=== PATIENT | male | born 1935 | race Caucasian/White ===

== ENCOUNTER 2017-01-30 21:45 | Emergency (ER) | payer MEDICARE ==
[~2017-01-30] VITALS: Ht 172.7 cm; Wt 59.0 kg
[~2017-01-30 21:45] MED LIST: AMLODIPINE/BENA1 CAP PO; BISOPROLOL PO; DIGOX0.125 MG PO; DILTIAZEM30 MG PO; FLOMAX0.4 MG PO; JANTOVEN1 MG PO; KLOR-CON M2020 ME1 PO; NEXIUM20 MG PO; PLAVIX75 MG PO; PRILOSEC40 M1 PO; PROSCAR5 MG PO; THERMOTABS 2871 TAB PO; ULTRAM50 MG PO; VITAMIN D-32000 UNI1 PO; [UNRECOGNIZED DRUG - OTHER] PO
[2017-01-30] MEDS ORDERED: ASPIR LOW81 MG PO (21:52)
[2017-01-30] MEDS ORDERED: ATORVASTATIN CA40 M1 PO (21:52)
[2017-01-30] MEDS ORDERED: PRADAXA75 M1 PO (21:53)
[2017-01-30] MEDS ORDERED: AMLODIPINE BESYL5 MG PO (21:53)
[2017-01-30] MEDS ORDERED: [UNRECOGNIZED DRUG - OTHER] NAS (21:54)
[2017-01-30] MEDS ORDERED: AZELASTINE NAS (21:54)
[2017-01-30] MEDS ORDERED: COREG12.5 M1 PO (21:55)
[2017-01-30] MEDS ORDERED: AUGMENTIN 875875 MG PO (23:15)
== END 2017-01-30 23:27 | disposition home or self-care (01) ==
LOC: ED 21:45
DX: J06.9 Acute upper respiratory infection, unspecified (principal); J02.9 Acute pharyngitis, unspecified; Z79.82 Long term (current) use of aspirin; Z79.899 Other long term (current) drug therapy

== ENCOUNTER → 2017-05-17 | Outpatient (CLI) | payer MEDICARE ==
[~2017-05-17] MED LIST changes: +AMLODIPINE BESYL5 MG PO; +ASPIR LOW81 MG PO; +ATORVASTATIN CA40 M1 PO; +AUGMENTIN 875875 MG PO; +AZELASTINE NAS; +COREG12.5 M1 PO; +PRADAXA75 M1 PO; +[UNRECOGNIZED DRUG - OTHER] NAS
[2017-05-17 12:26] LABS: ALBUMIN 3.6 gm/dl (3.1-4.5); BUN 25 mg/dl (7-24); CHLORIDE 109 mmol/L (98-107); CREATININE 1.37 mg/dL (0.70-1.30); POTASSIUM 4.3 mmol/L (3.5-5.1); SODIUM 144 mmol/L (136-145)
== END | disposition home or self-care (01) ==
LOC: LAB 11:20
PROVIDERS: Internal Medicine
DX: E87.5 Hyperkalemia (principal)

== ENCOUNTER 2019-02-11 19:03 | Emergency (ER) | payer MEDICARE ==
[~2019-02-11] VITALS: Ht 170.1 cm; Wt 56.7 kg
--- NOTE | ~2019-02-11 | EKG ---
[place], [place] ELECTROCARDIOGRAM REPORT NAME: CRUZ MATTHEWS UNIT #: [id number] ROOM: DOCTOR: EPIPHANY DRAFT REPORT BIRTHDATE: [birth year] [facility] Test Date: 2019-02-11 Test Time: 19:10:27 Pat Name: CRUZ MATTHEWS Department: Room: Gender: M Grants Administrator: : 1935 Requested By: KRISTINE MURPHY Order Number: [id number] Reading MD: Logan Duarte MD Measurements Intervals [place] Rate: 122 P: DC: QRS: 257 QRSD: 92 T: -82 QT: 288 QTc: 411 Interpretive Statements Atrial fibrillation Ventricular premature complex Left anterior fascicular block Low voltage, extremity leads Repol abnrm, prob ischemia, inferolateral lds Baseline wander in lead(s) V5 Electronically Signed On 02-12-2019 5:08:16 PDT by Logan Duarte MD CM:EKGRPT:ELECTROCARDIOGRAM REPORT [id number] KRISTINE MURPHY MD EPIPHANY DRAFT REPORT KRISTINE MURPHY MD
--- NOTE | ~2019-02-11 | EKG ---
[place], [place] ELECTROCARDIOGRAM REPORT NAME: CRUZ MATTHEWS UNIT #: [id number] ROOM: DOCTOR: EPIPHANY DRAFT REPORT BIRTHDATE: [birth year] [facility] Test Date: 2019-02-11 Test Time: 19:26:31 Pat Name: CURZ MATTHEWS Department: Room: Gender: M Tip Tester: : 1935 Requested By: KRISTINE MURPHY Order Number: [id number] Reading MD: Logan Duarte MD Measurements Intervals [place] Rate: 109 P: PA: QRS: 242 QRSD: 96 T: -47 QT: 315 QTc: 425 Interpretive Statements Atrial fibrillation Low voltage, extremity leads Repol abnrm suggests ischemia, diffuse leads Electronically Signed On 02-12-2019 5:08:23 PDT by Logan Duarte MD CM:EKGRPT:ELECTROCARDIOGRAM REPORT [id number] KRISTINE MURPHY MD EPIPHANY DRAFT REPORT KRISTINE MURPHY MD
[2019-02-11 19:35] LABS: BASO % 0.2 % (0.0-1.0); EOS % 0.4 % (1.0-4.0); HEMATOCRIT 43.1 % (42.0-52.0); HEMOGLOBIN 13.9 g/dl (14.0-18.0); LYMPH # 2.3 10*3/uL (1.3-4.4); LYMPH % 23.4 % (27.0-41.0); MEAN CELL VOLUME 99.8 fl (80.0-94.0); MEAN CORPUSCULAR HGB 32.2 pg (27.0-31.0); MEAN CORPUSCULAR HGB CONC 32.3 g/dl (33.0-37.0); MEAN PLATELET VOLUME 9.6 fl (9.6-12.3); MONO # 0.5 10*3/uL (0.1-1.0); MONO % 4.9 % (3.0-9.0); NEUT # 6.8 10*3/uL (2.3-7.9); NEUT % 70.8 % (47.0-73.0); PLATELET COUNT AUTOMATED 172 10*3/uL (130-400); RED BLOOD COUNT 4.32 10*6/uL (4.50-5.90); RED CELL DISTRI WIDTH 13.2 % (0-14.5); WHITE BLOOD COUNT 9.6 10*3/uL (4.8-10.8)
[2019-02-11 19:49] LABS: ACT PARTIAL THROMBO TIME 25.2 SECONDS (20.0-32.1); INTERNATIONAL NORM RATIO 1.2 (2.0-3.5)
[2019-02-11 19:53] LABS: ALBUMIN 3.6 gm/dl (3.1-4.5); ALKALINE PHOSPHATASE 93 U/L (45-117); BUN 21 mg/dl (7-24); CHLORIDE 109 mmol/L (98-107); CREATININE 1.33 mg/dL (0.70-1.30); POTASSIUM 4.9 mmol/L (3.5-5.1); SGOT/AST 23 IU/L (3-35); SGPT/ALT 24 U/L (12-78); SODIUM 138 mmol/L (136-145); TOTAL PROTEIN 7.2 gm/dL (6.4-8.2); TROPONIN I 0.032 ng/ml (<0.045)
== END 2019-02-11 20:00 | disposition short-term general hospital (02) ==
LOC: ED 19:03
PROVIDERS: Emergency Medicine Emergency Medical Services
DX: I25.9 Chronic ischemic heart disease, unspecified (principal); J96.90 Respiratory failure, unspecified, unspecified whether with hypoxia or hypercapnia; J81.0 Acute pulmonary edema; I48.91 Unspecified atrial fibrillation; Z86.73 Personal history of transient ischemic attack (TIA), and cerebral infarction without residual deficits; Z79.899 Other long term (current) drug therapy; Z79.82 Long term (current) use of aspirin; Z79.01 Long term (current) use of anticoagulants

== ENCOUNTER 2019-07-26 12:10 | Inpatient (IN) | payer MEDICARE ==
[2019-07-26] VITALS (9 sets, daily range): BP systolic 111–139; BP diastolic 47–69
[~2019-07-26] VITALS: Ht 175.2 cm; Wt 50.6 kg
[~2019-07-26 12:10] MED LIST changes: -DIGOX0.125 MG PO; +DIGOX125 MCG PO
[2019-07-26 12:36] LABS: BASO % 0.1 % (0.0-1.0); EOS % 0.4 % (1.0-4.0); HEMATOCRIT 38.8 % (42.0-52.0); HEMOGLOBIN 12.6 g/dl (14.0-18.0); LYMPH # 1.3 10*3/uL (1.3-4.4); LYMPH % 15.4 % (27.0-41.0); MEAN CELL VOLUME 100.3 fl (80.0-94.0); MEAN CORPUSCULAR HGB 32.6 pg (27.0-31.0); MEAN CORPUSCULAR HGB CONC 32.5 g/dl (33.0-37.0); MEAN PLATELET VOLUME 9.1 fl (9.6-12.3); MONO # 0.8 10*3/uL (0.1-1.0); MONO % 8.9 % (3.0-9.0); NEUT # 6.4 10*3/uL (2.3-7.9); NEUT % 74.8 % (47.0-73.0); PLATELET COUNT AUTOMATED 154 10*3/uL (130-400); RED BLOOD COUNT 3.87 10*6/uL (4.50-5.90); RED CELL DISTRI WIDTH 14.6 % (0-14.5); WHITE BLOOD COUNT 8.5 10*3/uL (4.8-10.8)
[2019-07-26 12:44] LABS: ACT PARTIAL THROMBO TIME 45.6 SECONDS (20.0-32.1); INTERNATIONAL NORM RATIO 1.3 (2.0-3.5)
[2019-07-26 12:51] LABS: ALBUMIN 3.6 gm/dl (3.1-4.5); ALKALINE PHOSPHATASE 99 U/L (45-117); BUN 28 mg/dl (7-24); CHLORIDE 111 mmol/L (98-107); CREATININE 1.29 mg/dL (0.70-1.30); LIPASE 190 U/L (73-393); POTASSIUM 4.9 mmol/L (3.5-5.1); SGOT/AST 22 IU/L (3-35); SGPT/ALT 34 U/L (12-78); SODIUM 139 mmol/L (136-145); TOTAL PROTEIN 7.4 gm/dL (6.4-8.2)
[2019-07-26 12:54] LABS: TROPONIN I 0.047 ng/ml (<0.045)
--- NOTE | 2019-07-26 16:19 | NUR ---
CHAPERONED LAURITA WELLER WITH HEMOCULT TEST.
--- NOTE | 2019-07-26 16:19 | NUR ---
PATIENT STILL UNABLE TO URINATE AT THIS TIME.
--- NOTE | 2019-07-26 17:15 | NUR ---
A 84, admitted to , under the services of ANGELO Marcos DO with a diagnosis of COLITIS. Chief complaint is NAUSEA/VOMITING/DIARRHEA AFTER EATING MEALS. Patient arrived via bed from ER. Monitor applied. Initial assessment completed. Vital signs taken and recorded. ANGELO MARCOS DO notified of admission to the unit. Orders received. See assessment for past medical history, medications and allergies. Patient and/or family oriented to unit. [facility] reviewed. Clothing/patient valuable form completed. CHRISTIANNE VIDES
--- NOTE | 2019-07-26 17:39 | NUR ---
PATIENT TAKEN TO 4TH FLOOR BY THIS NURSE. NO CHANGE IN PATIENT STATUS.
--- NOTE | 2019-07-26 17:51 | NUR ---
SPOKE WITH REGARDING CONSULT. ECHO IN THE AM.
[2019-07-26] MEDS ORDERED: BRILINTA90 M1 PO (17:54)
[2019-07-26] MEDS ORDERED: ZESTRIL10 MG PO (17:54)
[2019-07-26] MEDS ORDERED: LIPITOR80 MG PO (17:55)
--- NOTE | 2019-07-26 18:25 | NUR ---
PT HAD MODERATE LIQUID BROWN BM AT THIS TIME; SPECIMENS SENT TO LAB.
[2019-07-26 18:31] LABS: BILIRUBIN NEGATIVE (NEGATIVE); BLOOD NEGATIVE (NEGATIVE); CLARITY CLEAR (CLEAR); COLOR YELLOW (YELLOW); GLUCOSE NEGATIVE (NEGATIVE); KETONE NEGATIVE (NEGATIVE); LEUKO ESTERASE NEGATIVE (NEGATIVE); NITRITE NEGATIVE (NEGATIVE); UROBILINOGEN 0.2 E.U./dl (0.2-1.0)
[2019-07-26 18:32] LABS: WBC 0-2 wbc/hpf (0-5)
--- NOTE | 2019-07-26 18:38 | NUR ---
PT TAKEN OFF FLOOR FOR CT ABD
--- NOTE | 2019-07-26 21:38 | NUR ---
VOICE MAIL LEFT FOR DR BAUTISTA REGARDING NEW PATIENT CONSULT.
--- NOTE | 2019-07-26 21:51 | NUR ---
ANOTHER CALL PLACED TO DR MICHELE QUINONESARDING NEW PATIENT CONSULT. NO ANSWER.
--- NOTE | 2019-07-26 22:32 | NUR ---
DR KELSEA WAKEFIELDED FOR PT TO RECEIVE MEDICATIONS WITH SIPS OF WATER.
[2019-07-27] VITALS (8 sets, daily range): BP systolic 104–145; BP diastolic 59–77
--- NOTE | 2019-07-27 03:09 | NUR ---
24 HOUR CHART CHECK COMPLETE.
--- NOTE | 2019-07-27 06:01 | NUR ---
ANOTHER ATTEMPT TO CALL NEW PT CONSULT INTO DR. BAUTISTA. NO ANSWER. VOICEMAIL LEFT. AWAITING CALL BACK.
[2019-07-27 06:17] LABS: HEMATOCRIT 40.3 % (42.0-52.0); HEMOGLOBIN 12.9 g/dl (14.0-18.0); MEAN CELL VOLUME 99.5 fl (80.0-94.0); MEAN CORPUSCULAR HGB 31.9 pg (27.0-31.0); MEAN PLATELET VOLUME 9.3 fl (9.6-12.3); PLATELET COUNT AUTOMATED 130 10*3/uL (130-400); RED BLOOD COUNT 4.05 10*6/uL (4.50-5.90); RED CELL DISTRI WIDTH 14.2 % (0-14.5); WHITE BLOOD COUNT 10.4 10*3/uL (4.8-10.8)
[2019-07-27 06:30] LABS: ACT PARTIAL THROMBO TIME 35.6 SECONDS (20.0-32.1); INTERNATIONAL NORM RATIO 1.2 (2.0-3.5)
[2019-07-27 06:34] LABS: ALBUMIN 3.4 gm/dl (3.1-4.5); BUN 28 mg/dl (7-24); CHLORIDE 113 mmol/L (98-107); CHOLESTEROL 88 mg/dL (<200); CREATININE 1.32 mg/dL (0.70-1.30); PHOSPHOROUS 3.4 mg/dL (2.5-4.9); SGOT/AST 26 IU/L (3-35); SGPT/ALT 28 U/L (12-78); SODIUM 138 mmol/L (136-145); TOTAL PROTEIN 6.9 gm/dL (6.4-8.2); TRIGLYCERIDES 75 mg/dl (<150); VLDL CHOLESTEROL 15 mg/dL (6-40)
[2019-07-27 06:41] LABS: ALKALINE PHOSPHATASE 89 U/L (45-117); FREE T4 1.18 ng/dl (0.76-1.46); HDL CHOLESTEROL 38 mg/dl (40-60); LDL CHOLESTEROL 35 mg/dL (9-159); THYROID STIM HORMONE (HS) 0.786 uIU/ml (0.358-4.75)
[2019-07-27 06:45] LABS: TOTAL CELLS COUNTED 100 #CELLS
[2019-07-27 06:46] LABS: PLATELET SUFFICIENCY NORMAL (NORMAL)
[2019-07-27 06:47] LABS: BURR CELLS MODERATE
--- NOTE | 2019-07-27 07:01 | NUR ---
DR BAUTISTA CALLED IN. WANTS PT TO GET COLONOSCOPY THIS AFTERNOON. CLEAR LIQUID BREAKFAST, MIRALAX PREP FOLLOWING, NPO AFTER PREP.
[2019-07-27 08:11] LABS: VITAMIN D, 25-HYDROXY 33.5 ng/mL (30-100)
--- NOTE | 2019-07-27 08:25 | NUR ---
PHYSICAL THERAPY Screen received pt admit from home with diarrhea/colitis. Please consult PT if pt's functional status declines below baseline, thank you. Kandy Prasad PT
--- NOTE | 2019-07-27 11:44 | NUR ---
[employer]ios[employer] Operator in to talk to patient. Patient states lives at HOME with . There are 2 steps in the home. Physician: AILEEN Pharmacy: [facility] Home health services: NONE Patient's level of ADLs: INDEPENDENT Patient has working utilities: YES DME: NONE Follow-up physician's appointment after d/c: WILL BE MADE BY HOSPITALIST NURSE DIRECTOR ON DISCHARGE Does patient want to access PORTAL?: NO Discharge plan PT LIVES AT HOME WITH HIS AND STATES HE IS INDEPENDENT IN HIS CARE. STATES HE PLANS TO RETURN HOME ON DISCHARGE WHEN MEDICALLLY STABLE. TALKED WITH PT ABOUT HOME HEALTH BUT HE DECLINES. STATES HE WILL HAVE A RIDE HOME ON DISCHARGE. WILL CONTINUE TO FOLLOW. ROMAN CASON
--- NOTE | 2019-07-27 17:21 | NUR ---
LEFT FLOOR FOR SURGERY.
--- NOTE | 2019-07-27 20:38 | NUR ---
PT BACK ON FLOOR AT THIS TIME FROM SURGERY. VITALS STABLE T: 97.6, P: 92, R: 16, BP: 119/65, PO: 96% RA. PT EATING DINNER AT THIS TIME. HAS NO COMPLAINTS. WILL MONITOR.
[2019-07-28] VITALS: BP 119/63
--- NOTE | 2019-07-28 02:49 | NUR ---
24 HOUR CHART CHECK COMPLETE.
[2019-07-28 08:00] VITALS: BP 120/70
--- NOTE | 2019-07-28 11:28 | NUR ---
PT CONTINUES TO DENY HE WILL HAVE NEEDS ON DISCHARGE. PLANS TO RETURN HOME WHEN MEDICALLY STABLE. WILL CONTINUE TO FOLLOW.
--- NOTE | 2019-07-28 11:55 | NUR ---
attempted to call at home to get pradaglenroy brought in. no answer. will try again later.
[2019-07-28 12:00] VITALS: BP 104/45
--- NOTE | 2019-07-28 13:19 | NUR ---
REFERRAL FOR HOME HEALTH SENT TO [facility] PER PT REQUEST.
[2019-07-28 16:00] VITALS: BP 126/59
[2019-07-28 20:00] VITALS: BP 124/65
[2019-07-29] VITALS: BP 124/69
[2019-07-29 07:33] LABS: BASO % 0.2 % (0.0-1.0); EOS # 0.3 10*3/uL (0.0-0.4); EOS % 6.1 % (1.0-4.0); HEMATOCRIT 36.8 % (42.0-52.0); HEMOGLOBIN 11.9 g/dl (14.0-18.0); LYMPH # 0.9 10*3/uL (1.3-4.4); LYMPH % 21.9 % (27.0-41.0); MEAN CORPUSCULAR HGB 32.3 pg (27.0-31.0); MEAN CORPUSCULAR HGB CONC 32.3 g/dl (33.0-37.0); MEAN PLATELET VOLUME 9.7 fl (9.6-12.3); MONO # 0.5 10*3/uL (0.1-1.0); MONO % 11.1 % (3.0-9.0); NEUT # 2.5 10*3/uL (2.3-7.9); NEUT % 60.2 % (47.0-73.0); PLATELET COUNT AUTOMATED 111 10*3/uL (130-400); RED BLOOD COUNT 3.68 10*6/uL (4.50-5.90); RED CELL DISTRI WIDTH 14.7 % (0-14.5); WHITE BLOOD COUNT 4.1 10*3/uL (4.8-10.8)
[2019-07-29 07:49] LABS: ALBUMIN 2.9 gm/dl (3.1-4.5); ALKALINE PHOSPHATASE 78 U/L (45-117); BUN 15 mg/dl (7-24); CHLORIDE 116 mmol/L (98-107); CREATININE 1.01 mg/dL (0.70-1.30); POTASSIUM 3.7 mmol/L (3.5-5.1); SGOT/AST 41 IU/L (3-35); SGPT/ALT 42 U/L (12-78); SODIUM 142 mmol/L (136-145); TOTAL PROTEIN 6.5 gm/dL (6.4-8.2)
[2019-07-29 08:00] VITALS: BP 129/70
[2019-07-29] MEDS ORDERED: ONDANSETRON4 MG/2 M3 IV (10:39)
[2019-07-29] MEDS ORDERED: QUESTRAN LIGHT4 GM PO (10:54)
[2019-07-29 12:00] VITALS: BP 120/64
--- NOTE | 2019-07-29 13:23 | NUR ---
PT WILL GO HOME WITH [facility] FOR PT ON DISCHARGE. WILL CONTINUE TO FOLLOW.
--- NOTE | 2019-07-29 13:27 | NUR ---
NOTIFIED [facility] THAT PT WAS BEING DICHARGED TODAY. THEY STATE THEY WILL SEE HIM MARTIN.
--- NOTE | 2019-07-29 13:58 | NUR ---
PATIENT WILL BE DISCHARGED AFTER HE IS DONE EATING LUNCH.
--- NOTE | 2019-07-29 13:58 | NUR ---
Discharge instructions reviewed with patient/family. Patient receptive and verbalizes understanding. Follow-up care arranged. Written instructions given to patient/family. ANNALISA ZHAO.
== END 2019-07-29 16:57 | disposition home or self-care (01) | DRG 392 ==
LOC: ED 12:10 → EDHOLD 16:32 → 4E 16:32
PROVIDERS: Internal Medicine; Nurse Practitioner Family; ADMIT Internal Medicine
DX: K57.30 Diverticulosis of large intestine without perforation or abscess without bleeding (principal); D53.9 Nutritional anemia, unspecified; E87.8 Other disorders of electrolyte and fluid balance, not elsewhere classified; E83.41 Hypermagnesemia; E80.6 Other disorders of bilirubin metabolism; I10 Essential (primary) hypertension; K21.9 Gastro-esophageal reflux disease without esophagitis; I48.91 Unspecified atrial fibrillation; Z86.73 Personal history of transient ischemic attack (TIA), and cerebral infarction without residual deficits; I25.2 Old myocardial infarction; Z88.8 Allergy status to other drugs, medicaments and biological substances; Z79.899 Other long term (current) drug therapy; Z79.82 Long term (current) use of aspirin; Z87.891 Personal history of nicotine dependence; Z95.5 Presence of coronary angioplasty implant and graft; Z98.49 Cataract extraction status, unspecified eye

== ENCOUNTER → 2019-08-12 | Outpatient (CLI) | payer MEDICARE ==
[~2019-08-12] MED LIST changes: +BRILINTA90 M1 PO; +LIPITOR80 MG PO; +ONDANSETRON4 MG/2 M3 IV; +QUESTRAN LIGHT4 GM PO; +ZESTRIL10 MG PO
[2019-08-12 11:55] LABS: BASO % 0.7 % (0.0-1.0); EOS # 0.2 10*3/uL (0.0-0.4); EOS % 3.3 % (1.0-4.0); HEMATOCRIT 37.7 % (42.0-52.0); HEMOGLOBIN 12.1 g/dl (14.0-18.0); LYMPH # 1.6 10*3/uL (1.3-4.4); LYMPH % 34.2 % (27.0-41.0); MEAN CELL VOLUME 100.3 fl (80.0-94.0); MEAN CORPUSCULAR HGB 32.2 pg (27.0-31.0); MEAN CORPUSCULAR HGB CONC 32.1 g/dl (33.0-37.0); MEAN PLATELET VOLUME 9.3 fl (9.6-12.3); MONO # 0.5 10*3/uL (0.1-1.0); MONO % 9.9 % (3.0-9.0); NEUT # 2.3 10*3/uL (2.3-7.9); NEUT % 51.7 % (47.0-73.0); PLATELET COUNT AUTOMATED 218 10*3/uL (130-400); RED BLOOD COUNT 3.76 10*6/uL (4.50-5.90); RED CELL DISTRI WIDTH 14.3 % (0-14.5); WHITE BLOOD COUNT 4.5 10*3/uL (4.8-10.8)
[2019-08-12 12:22] LABS: ALBUMIN 3.4 gm/dl (3.1-4.5); BUN 20 mg/dl (7-24); CHLORIDE 109 mmol/L (98-107); POTASSIUM 4.8 mmol/L (3.5-5.1); SODIUM 138 mmol/L (136-145)
[2019-08-12 12:23] LABS: CREATININE 1.08 mg/dL (0.70-1.30); PHOSPHOROUS 3.4 mg/dL (2.5-4.9)
== END | disposition home or self-care (01) ==
LOC: LAB 10:38
PROVIDERS: Internal Medicine
DX: A04.72 Enterocolitis due to Clostridium difficile, not specified as recurrent (principal)

== ENCOUNTER → 2019-11-18 | Outpatient (CLI) | payer MEDICARE ==
[2019-11-18 14:16] LABS: BASO % 0.4 % (0.0-1.0); EOS # 0.1 10*3/uL (0.0-0.4); EOS % 2.3 % (1.0-4.0); HEMATOCRIT 40.9 % (42.0-52.0); LYMPH # 1.8 10*3/uL (1.3-4.4); LYMPH % 34.5 % (27.0-41.0); MEAN CELL VOLUME 98.6 fl (80.0-94.0); MEAN CORPUSCULAR HGB 31.8 pg (27.0-31.0); MEAN CORPUSCULAR HGB CONC 32.3 g/dl (33.0-37.0); MEAN PLATELET VOLUME 9.2 fl (9.6-12.3); MONO # 0.5 10*3/uL (0.1-1.0); MONO % 9.6 % (3.0-9.0); NEUT # 2.8 10*3/uL (2.3-7.9); PLATELET COUNT AUTOMATED 158 10*3/uL (130-400); RED BLOOD COUNT 4.15 10*6/uL (4.50-5.90); WHITE BLOOD COUNT 5.2 10*3/uL (4.8-10.8)
[2019-11-18 14:35] LABS: ALBUMIN 3.4 gm/dl (3.1-4.5); BILIRUBIN, DIRECT 0.2 mg/dL (0.0-0.2); BUN 26 mg/dl (7-24); CHLORIDE 113 mmol/L (98-107); CHOLESTEROL 69 mg/dL (<200); CREATININE 1.22 mg/dL (0.70-1.30); POTASSIUM 5.1 mmol/L (3.5-5.1); SGOT/AST 23 IU/L (3-35); SGPT/ALT 24 U/L (12-78); SODIUM 141 mmol/L (136-145); TOTAL PROTEIN 7.2 gm/dL (6.4-8.2); TRIGLYCERIDES 77 mg/dl (<150); VLDL CHOLESTEROL 15 mg/dL (6-40)
[2019-11-18 14:37] LABS: ALKALINE PHOSPHATASE 81 U/L (45-117); HDL CHOLESTEROL 39 mg/dl (40-60); LDL CHOLESTEROL 15 mg/dL (9-159)
== END | disposition home or self-care (01) ==
LOC: LAB 13:31
PROVIDERS: Internal Medicine
DX: I48.20 Chronic atrial fibrillation, unspecified (principal); A04.72 Enterocolitis due to Clostridium difficile, not specified as recurrent; E78.2 Mixed hyperlipidemia

== ENCOUNTER → 2020-09-13 | Outpatient (CLI) | payer MEDICARE | END | disposition home or self-care (01) | LOC: CARD 12:54 | PROVIDERS: ATTEND Internal Medicine Cardiovascular Disease | DX: I08.3 Combined rheumatic disorders of mitral, aortic and tricuspid valves (principal); I25.10 Atherosclerotic heart disease of native coronary artery without angina pectoris; I48.21 Permanent atrial fibrillation ==

== ENCOUNTER 2023-03-14 18:48 | Emergency (ER) | payer MEDICARE ==
[~2023-03-14] VITALS: Ht 170.1 cm; Wt 56.7 kg
[~2023-03-14 18:48] MED LIST changes: +B12 ACTIVE1000 MCG PO; +CARVEDILOL25 MG PO; +CLOPIDOGREL75 MG PO; +LASIX20 MG PO; +OMNICEF300 MG PO; +POTASSIUM CHLO20 ME4 PO; +PRAD75 PO; +VITAMIN D3 MA125 MC1 PO
[2023-03-14 21:17] LABS: BILIRUBIN Negative (Negative); BLOOD 2+ (Negative); CLARITY Clear (Clear); COLOR Yellow (Yellow); GLUCOSE Negative (Negative); KETONE Negative (Negative); LEUKO ESTERASE Negative (Negative); NITRITE Negative (Negative); PH 7.5 (4.5-8.0); SPECIFIC GRAVITY 1.015 (1.001-1.030)
[2023-03-14 21:34] LABS: BACTERIA TRACE; EPITHELIAL CELLS 0-2; WBC 0-2 wbc/hpf (0-5)
== END 2023-03-14 22:35 | disposition home or self-care (01) ==
LOC: ED 18:48
PROVIDERS: Internal Medicine
DX: R33.9 Retention of urine, unspecified (principal); I10 Essential (primary) hypertension; K21.9 Gastro-esophageal reflux disease without esophagitis; I48.91 Unspecified atrial fibrillation; Z91.041 Radiographic dye allergy status; Z95.5 Presence of coronary angioplasty implant and graft; Z98.890 Other specified postprocedural states; Z87.891 Personal history of nicotine dependence